=== PATIENT | female | born 1955 | race Caucasian/White ===

== ENCOUNTER → 2017-01-11 | Day surgery (SDC) | payer BC, OTHER ==
[2017-01-04 15:24] VITALS: Ht 158.8 cm; Wt 116.4 kg
[~2017-01-11] VITALS: Ht 158.8 cm; Wt 116.4 kg
[~2017-01-11] MED LIST: ACET-1256 PO; ALBINS/ INH; AMT25 PO; ASCA500 PO; ATEN-171 PO; ATOR-24 PO; ATROPINE SULFATE 0.1 MG/ML 5ML SYR IV PRN; BIOT1CAP9 PO; CALC500C3 PO; CITA20TA4 PO; EpHEDrine SULFATE INJ 50 MG/ML AMP IV PRN; GLC/500 PO; LIDOCAINE HCL 2% 2 ML VIAL (20MG/ML) ONE; MIDAZOLAM HCL 1 MG/ML 2ML VIAL ONE; MULT-506 PO; PROPOFOL IV EMULSION 10 MG/ML 20 ML VIAL IV ONE; SODIUM CHLORIDE 0.9% 500ML 500 ML IV ONE; TURM1CAP4 PO; VNTHFA/IN INH; ZINC100T2 PO
--- NOTE | 2017-01-11 09:45 | Endo History and Physical ---
History & Physical Date of Service: Jan 11, 2017. Chief Complaint: screening Referring Physician: Dr. Abena Contreras History of Present Illness screening Past Surgical History Hx Cardiac Surgery: No Hx Internal Defibrillator: No Hx Pacemaker: No Hx Abdominal Surgery: Yes (UMBILICAL HERNIA REPAIR) Hx of Implantable Prosthesis: No Hx Post-Op Nausea and Vomiting: No Hx Cancer Surgery: No Hx Thoracic Surgery: No Hx Orthopedic: Yes (LT TKA) Hx Urinary Tract Surgery: No Family History Colon CA Social History Smoking Status: Former Smoker Hx Substance Use: No Hx Alcohol Use: Yes (SOCIAL/OCCASIONAL) Allergies Coded Allergies: BEE STING (Verified Allergy, Severe, HARD TO BREATHE, 01/04/17) Barbiturates (Verified Allergy, Unknown, HIVES, 01/04/17) Penicillins (Verified Allergy, Unknown, HIVES, 01/04/17) Doxycycline (Verified Adverse Reaction, Unknown, SEVERE HEADACHES, ) Current Medications Reported Home Medications Medications Dose Route/Sig Max Daily Dose Days Date Category Proventil 0.083% 2.5MG/3ML (Albuterol Sulf) 2.5 Mg/3 Ml Nebu 2.5 Mg INH QID PRN 01/04/17 Reported Ventolin Hfa (Albuterol) 200 Puffs/05648 Mcg Aers 2-4 Puffs INH Q6H PRN 01/04/17 Reported Tums (Calcium Carbonate) 500 Mg Chew 1 Tab PO UD PRN 01/04/17 Reported Tylenol (Acetaminophen) 500 Mg Tab 1,000 Mg PO QPM 01/04/17 Reported Vitamin C (Ascorbic Acid) 500 Mg Tab 1 Tab PO DAILY 01/04/17 Reported Turmeric (Turmeric (Curcuma Longa)) 500 Mg Cap 1 Cap PO DAILY 01/04/17 Reported Biotin 10 Mg Cap 1 Cap PO DAILY 01/04/17 Reported Zinc 100 Mg Tab 1 Tab PO DAILY 01/04/17 Reported Multivitamin (Multivitamins) Tab 1 Tab PO DAILY 01/04/17 Reported Amitriptyline HCl 25 Mg Tab 1 Tab PO QPM 01/04/17 Reported Citalopram Hydrobromide 20 Mg Tab 1 Tab PO QPM 01/04/17 Reported Lipitor (Atorvastatin Calcium) 40 Mg Tab 40 Mg PO QPM 01/04/17 Reported Tenoretic 50 Mg/25 Mg (Atenolol/Chlorthalidone) 50 Mg/25 Mg Tab 1 Tab PO QPM 01/04/17 Reported Glucophage (Metformin Hcl) 500 Mg Tab 500 Mg PO QPM 01/04/17 Reported Vital Signs Weight (Kilograms): 116.36 Height (Feet): 5 Height (Inches): 2.5 Date Time Temp Pulse Resp B/P (MAP) Pulse Ox O2 Delivery O2 Flow Rate FiO2 01/11/17 09:10 36.4 86 18 173/83 (113) 94 Room Air Physical Exam General Appearance: no apparent distress Respiratory/Chest: Respiratory effort: no dyspnea Cardiovascular: Heart Auscultation: RRR Abdomen: Inspection & Palpation: soft Assessment and Plan CRC screening - cscopy
--- NOTE | 2017-01-11 10:28 | Discharge Instructions ---
Endoscopy Patient Instructions Date / Procedure(s) Performed Jan 11, 2017. Colonoscopy Allergy Information Coded Allergies: BEE STING (Verified Allergy, Severe, HARD TO BREATHE, 01/11/17) Barbiturates (Verified Allergy, Unknown, HIVES, 01/11/17) Penicillins (Verified Allergy, Unknown, HIVES, 01/11/17) Doxycycline (Verified Adverse Reaction, Unknown, SEVERE HEADACHES, ) Discharge Date / Findings Jan 11, 2017. Diverticulosis, hemorrhoids Medication Instructions Stopped Medication(s): last dose Metformin Tuesday Provider Instructions Activity Restrictions - No exercising or heavy lifting for 24 hours. - Do not drink alcohol the day of the procedure. - Do not drive a car or operate machinery until the day after the procedure. - Do not make any important decisions or sign important papers in 24 hours after the procedure. Following Day: - Return to full activity which may include returning to work/school. Diet Start your diet with liquids and light foods (jello, soup, juice, toast). Then eat your usual diet if not nauseated. Treatment For Common After Affects For mild abdominal pain, bloating, or excessive gas: - Rest - Eat lightly - Lie on right side Follow-Up Information Follow-up with Dr. Abena Contreras as scheduled Anesthesia Information What You Should Know You have had a procedure that required some medicine to reduce anxiety and discomfort. This treatment is called moderate sedation. After receiving the treatment, you may be sleepy, but you will be able to breathe on your own. The effects of the treatment may last for several hours. Follow these instructions along with Activity/Diet recommendations noted above: * Do NOT do anything where dizziness or clumsiness would be dangerous. * Rest quietly at home today, then you can be up and about tomorrow. * Have a responsible person stay with you the rest of today. * You may have had an I.V. today. If so, you may take the dressing off later today. Recommendations Call your doctor if: * Trouble breathing * Continuous vomiting for more than 24 hours * Temperature above 101 degrees * Severe abdominal pain or bloating * Pain not relieved by pain medicine ordered * There is increased drainage or redness from any incision * A large amount of rectal bleeding greater than 2-3 tablespoons. (If you had a polyp/s removed or have hemorrhoids, a small amount of blood - from the rectum is to be expected.) * You have any unanswered questions or concerns. IN THE EVENT OF A SERIOUS EMERGENCY, GO TO THE NEAREST EMERGENCY ROOM Your discharge instructions were prepared by provider Mary Berumen. Patient Instructions Signature Page Luna Edgar Patient (or Guardian) Signature/Date: I have read and understand the instructions given to me by my caregivers. Caregiver/RN/Doctor Signature/Date: The above-named patient and/or guardian has received patient instructions on this date. + Original Patient Signature Page (only) stays with chart. Please make copy for patient.
--- NOTE | 2017-01-11 10:32 | GI REPORT ---
Procedure Date: 01/11/2017 10:23 AM Procedure: Colonoscopy Indications: Screening for colorectal malignant neoplasm Medicines: See the Anesthesia note for documentation of the administered medications Complications: No immediate complications. Estimated Blood Loss: Estimated blood loss: none. Procedure: Pre-Anesthesia Assessment: - ASA Grade Assessment: III - A patient with severe systemic disease. - After reviewing the risks and benefits, the patient was deemed in satisfactory condition to undergo the procedure. After I obtained informed consent, the scope was passed under direct vision. Throughout the procedure, the patient's blood pressure, pulse, and oxygen saturations were monitored continuously. The scope was introduced through the anus and advanced to the terminal ileum. The colonoscopy was performed without difficulty. The patient tolerated the procedure well. The quality of the bowel preparation was good. Findings: The perianal and digital rectal examinations were normal. A few small and large-mouthed diverticula were found in the entire colon. Hemorrhoids on retroflexion. The exam was otherwise without abnormality on direct and retroflexion views. Impression: - Diverticulosis in the entire examined colon. Hemorrhoids. - The examination was otherwise normal on direct and retroflexion views. - No specimens collected. Recommendation: - Discharge patient to home. - Repeat colonoscopy in 10 years for screening purposes. Mary Perez M.D. Mary Perez MD 01/11/2017 10:31:33 AM This report has been signed electronically. Note Initiated On: 01/11/2017 10:23 AM I attest to the content of the Intraoperative Record and orders documented therein, exceptions below
--- NOTE | 2017-01-11 10:48 | Anesthesiology Progress Note ---
Anesthesia Post Op Note Date & Time Jan 11, 2017 at 10:48 Vital Signs Pain Intensity: 0 Vital Signs Past 12 Hours Date Time Temp Pulse Resp B/P (MAP) Pulse Ox O2 Delivery O2 Flow Rate FiO2 01/11/17 10:40 79 20 123/76 (92) 96 Room Air 01/11/17 10:25 73 20 110/78 (89) 97 Room Air 01/11/17 09:10 36.4 86 18 173/83 (113) 94 Room Air Notes Mental Status: alert / awake / arousable, participated in evaluation Pt Amnestic to Procedure: Yes Nausea / Vomiting: adequately controlled Pain: adequately controlled Airway Patency, RR, SpO2: stable & adequate BP & HR: stable & adequate Hydration State: stable & adequate Anesthetic Complications: no major complications apparent
[2017-01-11 10:53] VITALS: BP 132/88; PULSE 79; O2SAT 97
== END | disposition home or self-care (01) ==
LOC: C.GI 08:37
PROVIDERS: ATTEND Internal Medicine Gastroenterology
DX: Z12.11 Encounter for screening for malignant neoplasm of colon (principal); K57.90 Diverticulosis of intestine, part unspecified, without perforation or abscess without bleeding; K64.9 Unspecified hemorrhoids; J45.909 Unspecified asthma, uncomplicated; J44.9 Chronic obstructive pulmonary disease, unspecified; I10 Essential (primary) hypertension; E11.9 Type 2 diabetes mellitus without complications; E66.9 Obesity, unspecified; Z96.652 Presence of left artificial knee joint; Z87.891 Personal history of nicotine dependence; Z88.0 Allergy status to penicillin; Z88.1 Allergy status to other antibiotic agents; Z80.0 Family history of malignant neoplasm of digestive organs; Z68.42 Body mass index [BMI] 45.0-49.9, adult